=== PATIENT | female | born 1955 ===

== ENCOUNTER 2018-01-20 09:22 | Outpatient (CLI) | payer OTHER | END 2018-01-20 09:34 | disposition home or self-care (01) | LOC: TOM 09:22 | DX: K43.2 Incisional hernia without obstruction or gangrene (principal); D44.10 Neoplasm of uncertain behavior of unspecified adrenal gland; R10.11 Right upper quadrant pain ==

== ENCOUNTER 2023-04-04 13:40 | Emergency (ER) | payer OTHER ==
[~2023-04-04] VITALS: Ht 160 cm; Wt 77.1 kg
== END 2023-04-04 23:45 | disposition home or self-care (01) ==
LOC: ER 13:40
DX: J44.1 Chronic obstructive pulmonary disease with (acute) exacerbation (principal); Z20.822 Contact with and (suspected) exposure to COVID-19

== ENCOUNTER 2023-09-14 05:50 | Day surgery (SDC) | payer OTHER | END 2023-09-14 11:25 | disposition home or self-care (01) | LOC: AMB-ENDOS 05:50 | PROVIDERS: ATTEND Colon & Rectal Surgery | DX: K63.5 Polyp of colon (principal); K62.1 Rectal polyp; R10.32 Left lower quadrant pain; Z20.822 Contact with and (suspected) exposure to COVID-19 ==

== ENCOUNTER 2023-11-04 12:20 | Outpatient (CLI) | payer OTHER | END 2023-11-04 12:28 | disposition home or self-care (01) | LOC: RAD 12:20 | DX: M25.551 Pain in right hip (principal) ==